=== PATIENT | male | born 1980 | race African-American/Black ===

== ENCOUNTER 2018-11-22 08:17 | Emergency (ER) | payer MEDICARE, MEDICAID ==
[2018-11-22] MEDS ORDERED: ASPIRIN 81 MG TABLET, CHEWABLE PO ONE (08:53)
[2018-11-22] MEDS ORDERED: ASPIRIN 81 MG TABLET, CHEWABLE ONE (08:55)
[2018-11-22 09:01] LABS: ABSOLUTE BASOPHILS # (AUTO) 0.1 10^3/uL (0.0-0.2); ABSOLUTE EOSINOPHILS # (AUTO) 0.1 10^3/uL (0.0-0.6); ABSOLUTE LYMPHOCYTES (AUTO) 1.4 10^3/uL (0.5-4.7); ABSOLUTE MONOCYTES (AUTO) 0.4 10^3/uL (0.1-1.4); ABSOLUTE NEUT (AUTO) 4.7 10^3/uL (1.7-8.2); BASOPHILS % (AUTO) 0.8 % (0-2); HEMATOCRIT 44.3 % (37.9-51.0); LYMPHOCYTES % (AUTO) 20.9 % (13-45); MEAN CORPUSCULAR HEMOGLOBIN 24.5 pg (27.0-33.4); MEAN CORPUSCULAR HGB CONC 31.6 g/dL (32.0-36.0); MEAN CORPUSCULAR VOLUME 77 fl (80-97); MONOCYTES % (AUTO) 6.2 % (3-13); PLATELET COUNT 260 10^3/uL (150-450); RED BLOOD COUNT 5.73 10^6/uL (4.35-5.55); RED CELL DISTRIBUTION WIDTH 14.1 % (11.5-14.0); SEGMENTED NEUTROPHILS % (AUTO) 71.1 % (42-78); TOTAL CELLS COUNTED % (AUTO) 100 %; WHITE BLOOD COUNT 6.7 10^3/uL (4.0-10.5)
--- NOTE | 2018-11-22 09:17 | ER Document Report ---
ED General - General Chief Complaint: Chest Wall Pain Stated Complaint: CHEST WALL PAIN Time Seen by Provider: 11/22/18 09:13 Notes: HPI: She is a 38-year-old male who presents today with some left anterior musculoskeletal chest pain according to the patient's report. He states that it started when he rolled over in bed. He described it as sharp. Nonradiating. Hurts when he flexes and extends his chest muscles. He denies any runny nose, congestion, cough, trauma, back pain, abdominal pain, fevers, weakness or numbness. ROS: See HPI All other review of systems reviewed and otherwise negative Reviewed vital signs and nursing note as charted by RN. PHYSICAL EXAM: CONSTITUTIONAL: Alert and oriented and responds appropriately to questions. Well-appearing; well-nourished HEAD: Normocephalic; atraumatic EYES: PERRL; Conjunctivae clear, sclerae non-icteric CARD: Regular rate and rhythm; no murmurs; symmetric distal pulses RESP: Normal chest excursion without splinting or tachypnea; breath sounds clear and equal bilaterally; tenderness to palpation of left anterior chest wall with no obvious swelling, erythema, or crepitus; no wheezes, no rhonchi, no rales ABD/GI: Normal bowel sounds; non-distended; soft, non-tender; no palpable organomegaly or masses BACK: The back appears normal and is non-tender to palpation EXT: Normal ROM in all joints; non-tender to palpation; no edema SKIN: No acute lesions noted NEURO: CN 2-12 intact; 5/5 bilateral upper and lower extremity strength with sensation intact to light touch PSYCH: The patient's mood and manner are appropriate. Grooming and personal hygiene are appropriate. TRAVEL OUTSIDE OF THE [place] IN LAST 30 DAYS: No - Related Data Allergies/Adverse Reactions: No Known Allergies Allergy (Verified 11/22/18 08:21) Past Medical History - Social History Smoking Status: Current Every Day Smoker Chew tobacco use (# tins/day): No Frequency of alcohol use: None Drug Abuse: None Family History: Reviewed & Not Pertinent Patient has suicidal ideation: No Patient has homicidal ideation: No Renal/ Medical History: Denies: Hx Peritoneal Dialysis - Immunizations Hx Diphtheria, Pertussis, Tetanus Vaccination: No Physical Exam - Vital signs Vitals: Temp Pulse Resp BP Pulse Ox 98.6 F 63 16 123/85 98 11/22/18 08:28 11/22/18 08:28 11/22/18 08:28 11/22/18 08:28 11/22/18 08:28 Course - Re-evaluation Re-evalutation: Given the above history and physical examination I have a very low pretest probability for ACS, PE, or dissection. Cardiac protocol was ordered in triage/standing orders. Initial EKG as recorded below. 11/22/18 09:16 EKG shows a heart of 62, normal sinus rhythm, normal axis, no ST elevation or depression 11/22/18 09:43 Labs as recorded. No change in exam. X-ray shows possibly a lung nodule or shadowing of soft tissue. I have discussed this with the patient. Patient understands the importance of follow-up. Patient is only 38 years of age so I do believe a malignancy to be unlikely. Patient will be discharged home with strict return precautions and follow-up with the primary care provider. - Vital Signs Vital signs: Temp Pulse Resp BP Pulse Ox 98.6 F 63 16 123/85 98 11/22/18 08:28 11/22/18 08:28 11/22/18 08:28 11/22/18 08:28 11/22/18 08:57 - Laboratory Result Diagrams: 11/22/18 08:52 11/22/18 08:52 Laboratory results interpreted by me: 11/22/18 11/22/18 08:52 08:52 RBC 5.73 H MCV 77 L MCH 24.5 L MCHC 31.6 L RDW 14.1 H Glucose 112 H Creatine Kinase 324 H Discharge - Discharge Clinical Impression: Atypical chest pain, Lung nodule, solitary Condition: Good Disposition: HOME, SELF-CARE Additional Instructions: Come back immediately for any worsening pain, shortness of breath, fevers or vomiting, leg swelling, or any other acute problems. Please make sure that you follow-up in around 6 months for reimaging of the possibility of right lower lung lung nodule.
[2018-11-22 09:20] LABS: ALBUMIN 4.6 g/dL (3.5-5.0); ALKALINE PHOSPHATASE 51 U/L (38-126); ANION GAP 10 (5-19); ASPARTATE AMINO TRANSFERASE 33 U/L (17-59); BILIRUBIN,DIRECT 0.2 mg/dL (0.0-0.4); BILIRUBIN,TOTAL 0.5 mg/dL (0.2-1.3); BLOOD UREA NITROGEN 10 mg/dL (7-20); CALCIUM 9.4 mg/dL (8.4-10.2); CARBON DIOXIDE 24 mmol/L (22-30); CHLORIDE 105 mmol/L (98-107); CREATINE KINASE 324 U/L (55-170); GLUCOSE 112 mg/dL (75-110); POTASSIUM 4.2 mmol/L (3.6-5.0); TOTAL PROTEIN 7.5 g/dL (6.3-8.2)
--- NOTE | 2018-11-22 09:28 | RADIOLOGY REPORT (SQ) ---
EXAM DESCRIPTION: CHEST 2 VIEWS COMPLETED DATE/TIME: 11/22/2018 9:20 am REASON FOR STUDY: chest pain COMPARISON: None. EXAM PARAMETERS: NUMBER OF VIEWS: two views TECHNIQUE: Digital Frontal and Lateral radiographic views of the chest acquired. RADIATION DOSE: NA LIMITATIONS: none FINDINGS: LUNGS AND PLEURA: There is an 8.4 mm asymmetric nodule in the right lung base. Possibly a symmetric nipple shadow. Or confluence of shadows. Pulmonary nodule cannot be excluded. Lung field s are otherwise clear. No effusions. MEDIASTINUM AND HILAR STRUCTURES: No masses or contour abnormalities. HEART AND VASCULAR STRUCTURES: Heart normal size. No evidence for failure. BONES: No acute findings. HARDWARE: None in the chest. OTHER: No other significant finding. IMPRESSION: Asymmetric 8.4 mm nodule in the right lung base as described. Comparison with old films or follow-up films are recommended. Oblique views can be obtained as well. TECHNICAL DOCUMENTATION: JOB ID: [id number] [employer]- All Rights Reserved Reading location - IP/workstation name: [email or web address]
[2018-11-22 09:31] LABS: CREATINE KINASE MB 0.68 ng/mL (<4.55)
[2018-11-22 09:34] LABS: TROPONIN I < 0.012 ng/mL
--- NOTE | 2018-11-22 12:26 | EKG REPORT ---
SEVERITY:- ABNORMAL ECG - SINUS RHYTHM PROBABLE LEFT ATRIAL ABNORMALITY PROBABLE LEFT VENTRICULAR HYPERTROPHY : Confirmed by: Radha Biggs MD 22-Nov-2018 12:25:14
[2018-11-22 14:46] VITALS: BP 130/88
== END 2018-11-22 14:46 | disposition home or self-care (01) ==
LOC: ER 08:17
DX: R07.89 Other chest pain (principal); R91.1 Solitary pulmonary nodule; F17.200 Nicotine dependence, unspecified, uncomplicated
CPT/HCPCS: 93005; 99284; 36415; 82553; 82550; 85025; 80053; 84484; 71046; 93010; A9270